=== PATIENT | female | born 1960 | race Caucasian/White ===

== ENCOUNTER 2021-04-01 19:06 | Emergency (ER) | payer MEDICARE, OTHER ==
[~2021-04-01] VITALS: Ht 170.2 cm; Wt 121.3 kg
[2021-04-01] MEDS ORDERED: KETOROLAC TROMETHAMINE 30 MG INJ IVP ONE (19:45)
[2021-04-01] MEDS ORDERED: IV NS 1000 ML 1,000 ML IV ONE (19:45)
[2021-04-01] MEDS ORDERED: PROCHLORPERAZINE EDISYLATE 10 MG/2 ML VIAL IV ONE (19:45)
[2021-04-01] MEDS ORDERED: HYDROMORPHONE 1 MG/1 ML DISP.SYRIN IV ONE (19:45)
[2021-04-01] MEDS ORDERED: HYDROMORPHONE 1 MG/1 ML DISP.SYRIN ONE (20:13)
[2021-04-01] MEDS ORDERED: KETOROLAC TROMETHAMINE 30 MG INJ ONE (20:13)
[2021-04-01] MEDS ORDERED: PROCHLORPERAZINE EDISYLATE 10 MG/2 ML VIAL ONE (20:13)
[2021-04-01 20:15] LABS: HEMATOCRIT 36.2 % (31.2-41.9); MEAN CORPUSCULAR HEMOGLOBIN 27.5 uug (24.7-32.8); MEAN CORPUSCULAR VOLUME 85.6 fL (75.5-95.3); PLATELET COUNT (AUTO) 374 K/uL (179-408)
[2021-04-01 20:18] LABS: CREATININE 1.2 mg/dL (0.6-1.3); POTASSIUM 3.8 mmol/L (3.5-5.1)
[2021-04-01 21:04] VITALS: BP 130/70
[2021-04-01] MEDS ORDERED: PROC10TA29 PO (21:11)
[2021-04-01] MEDS ORDERED: PROC25SU31 RC (21:11)
[2021-04-01] MEDS ORDERED: HYDR4TAB4 PO (21:11)
--- NOTE | 2021-04-01 21:30 | NUR ---
Patient discharged to home in stable condition. Written and verbal after care instructions given. Patient verbalizes understanding of instructions. Stressed follow up or return to ER for worsening s/s. VSS. Steady gait. Caregiver + along to atend to her needs. No s/s of stroke. All belongings with patient. Advised not to drive.
== END 2021-04-01 21:31 | disposition home or self-care (01) ==
LOC: ER 19:06
DX: R11.2 Nausea with vomiting, unspecified (principal); C34.90 Malignant neoplasm of unspecified part of unspecified bronchus or lung; G89.3 Neoplasm related pain (acute) (chronic); C79.51 Secondary malignant neoplasm of bone; E11.65 Type 2 diabetes mellitus with hyperglycemia; Z86.711 Personal history of pulmonary embolism; E66.01 Morbid (severe) obesity due to excess calories; Z68.41 Body mass index [BMI] 40.0-44.9, adult; C78.7 Secondary malignant neoplasm of liver and intrahepatic bile duct; Z88.2 Allergy status to sulfonamides; Z90.710 Acquired absence of both cervix and uterus; M85.80 Other specified disorders of bone density and structure, unspecified site
CPT/HCPCS: 36415; 72170; 80048; 85025; 96361; 96374; 96375; 99284; J0780; J1170; J1885; A4663; J7030

== ENCOUNTER 2021-04-02 13:25 | Emergency (ER) | payer MEDICARE ==
[~2021-04-02] VITALS: Ht 165.1 cm; Wt 117.9 kg
[~2021-04-02 13:25] MED LIST: HYDR4TAB4 PO; PROC10TA29 PO; PROC25SU31 RC
--- NOTE | 2021-04-02 15:39 | NUR ---
Patient is resting comfortably on gurney while using her personal electronic device, NAD.
--- NOTE | 2021-04-02 15:48 | NUR ---
[email or web address], medical screening exam in progress
[2021-04-02] MEDS ORDERED: PROCHLORPERAZINE EDISYLATE 10 MG/2 ML VIAL IM ONE (16:00)
[2021-04-02] MEDS ORDERED: PROCHLORPERAZINE EDISYLATE 10 MG/2 ML VIAL ONE (16:02)
--- NOTE | 2021-04-02 16:08 | NUR ---
Patient discharged to home in stable condition. Written and verbal after care instructions given to patient. Patient verbalized understanding & compliance of instructions. Stressed follow up with primary doctor and her oncologist or return to ER for worsening s/s.
--- NOTE | 2021-04-02 16:10 | NUR ---
Patient said that someone will pick her up & she will have to wait in the ER waiting room. She is currently using our own wheelchair. safety and security officer Pancho notified re: a patient is using the hospital wheelchair.
== END 2021-04-02 16:16 | disposition home or self-care (01) ==
LOC: ER 13:27
DX: G89.29 Other chronic pain (principal); Z85.118 Personal history of other malignant neoplasm of bronchus and lung; Z85.830 Personal history of malignant neoplasm of bone; Z85.05 Personal history of malignant neoplasm of liver; E66.01 Morbid (severe) obesity due to excess calories; Z68.41 Body mass index [BMI] 40.0-44.9, adult; J45.909 Unspecified asthma, uncomplicated; Z86.711 Personal history of pulmonary embolism; E11.9 Type 2 diabetes mellitus without complications; Z88.5 Allergy status to narcotic agent; Z88.2 Allergy status to sulfonamides; Z90.710 Acquired absence of both cervix and uterus
CPT/HCPCS: 71045; 96372; 99283; J0780; A4663